=== PATIENT | male | born 1980 | race Caucasian/White ===

== ENCOUNTER → 2021-03-08 | Outpatient (CLI) | payer OTHER ==
--- NOTE | 2021-03-10 01:58 | REP ---
INDICATION: VARICOUSE VEINS AJITH LOWER LEGS COMPARISON: None. TECHNIQUE: Panchal scale and color Doppler evaluation of the bilateral lower extremities using linear high frequency transducer including reflux evaluation. FINDINGS: Ultrasound examination of the right and left lower extremity deep venous structures from the common femoral vein to the popliteal vein demonstrates normal compressibility flow and wave patterns in response to respiration and augmentation. There is no evidence for deep venous thrombosis. Right lower extremity demonstrates minimal reflux through the superficial femoral vein and popliteal vein along with reflux of the lesser saphenous vein (6 mm diameter with 4 second reflux duration) draining into popliteal and Giacomini veins. Left lower extremity demonstrates reflux of the common femoral vein into the profundus. Significant reflux is also identified through the lesser saphenous vein (8 mm diameter with 8 second reflux duration) supplying multiple anterolateral varicosities to the lower leg. IMPRESSION: No evidence for deep venous thrombosis. Reflux and varicosities primarily involving the left lower extremity. <Electronically signed by Binh Lovell > 03/10/21 0154
== END ==
LOC: M RAD 13:28
PROVIDERS: ATTEND Surgery Vascular Surgery
DX: I83.813 Varicose veins of bilateral lower extremities with pain (principal)

== ENCOUNTER → 2022-04-03 | Outpatient (REF) | payer OTHER ==
[2022-04-03 09:15] LABS: SEMEN APPEARANCE OPAQUE (OPAQUE); SEMEN VISCOSITY LIQUID (LIQUID); SEMEN VOLUME 5.5 ml (2.0-5.0); WBC CONCENTRATION <=1 M/ml (<=1 M/ml)
== END ==
LOC: M LAB REF 09:03
PROVIDERS: ATTEND Physician Assistant
DX: Z30.8 Encounter for other contraceptive management (principal)

== ENCOUNTER → 2023-11-01 | Outpatient (REF) ==
[2023-11-01 10:13] LABS: RSV AMPLIFICATION NEGATIVE (NEGATIVE)
== END ==
LOC: M EMP 08:11
PROVIDERS: ATTEND Family Medicine
DX: Z11.59 Encounter for screening for other viral diseases (principal)

== ENCOUNTER → 2023-11-01 | Outpatient (REF) | LOC: M EMP 08:14 | PROVIDERS: ATTEND Family Medicine | DX: Z11.52 Encounter for screening for COVID-19 (principal) ==

== ENCOUNTER → 2024-06-02 | Outpatient (REF) | LOC: M EMP 07:44 | PROVIDERS: ATTEND Family Medicine | DX: Z11.52 Encounter for screening for COVID-19 (principal) ==